=== PATIENT | female | born 1950 | race Caucasian/White ===

== ENCOUNTER → 2021-12-03 | Outpatient (CLI) | payer MEDICARE | LOC: RAD 09:12 | PROVIDERS: ATTEND Nurse Practitioner Adult Health | DX: I20.8 Other forms of angina pectoris (principal); E78.5 Hyperlipidemia, unspecified | CPT/HCPCS: 93306 ==

== ENCOUNTER → 2021-12-04 | Outpatient (CLI) | payer MEDICARE ==
[~2021-12-04] MED LIST: REGADENOSON 0.4 MG/5 ML SYR IV ONE
== END ==
LOC: NM 09:07
PROVIDERS: ATTEND Nurse Practitioner Adult Health
DX: R06.00 Dyspnea, unspecified (principal); I20.8 Other forms of angina pectoris; Z96.652 Presence of left artificial knee joint
CPT/HCPCS: 78452; 93017; A9502; J2785

== ENCOUNTER → 2022-08-18 | Outpatient (CLI) | payer MEDICARE ==
[~2022-08-18] MED LIST changes: +GADOBENATE DIMEGLUMINE 1 ML IV ONE; -REGADENOSON 0.4 MG/5 ML SYR IV ONE
[2022-08-18 08:17] LABS: CREATININE, SERUM 0.75 mg/dL (0.57-1.11)
== END ==
LOC: MRI 07:23
PROVIDERS: ATTEND Nurse Practitioner Adult Health
DX: R09.89 Other specified symptoms and signs involving the circulatory and respiratory systems (principal)
CPT/HCPCS: 36415; 70544; 70549; 82565; 84520

== ENCOUNTER 2025-07-30 14:36 | Emergency (ER) | payer MEDICARE ==
[~2025-07-30] VITALS: Ht 157.5 cm; Wt 68.0 kg
[2025-07-30 14:50] VITALS: TEMP 97.7
[2025-07-30 15:07] LABS: BASOPHILS % 0.5 % (0.0-1.0); EOSINOPHILS % 2.8 % (0.0-6.0); LYMPHOCYTES % 25.3 % (18.0-39.1); MONOCYTES % 7.7 % (4.4-11.3); NEUTROPHILS % 63.6 % (38.7-80.0); RED CELL DISTRIBUTION WIDTH 15.1 % (11.7-14.4)
[2025-07-30] MEDS ORDERED: MECLIZINE HCL 12.5 MG TAB ONE (15:12)
[2025-07-30 15:23] LABS: INR 0.88
[2025-07-30 15:27] LABS: EST GLOMERULAR FILTRATION RATE 88.0 ML/MIN (>=60)
[2025-07-30] MEDS: ACETAMINOPHEN 325 MG TAB PO ONE (15:37)
[2025-07-30] MEDS: MECLIZINE HCL 12.5 MG TAB PO ONE (15:38)
[2025-07-30 16:52] VITALS: PULSE 48; RESP 16; O2SAT 100
[2025-07-30] MEDS ORDERED: MECLIZINE HCL25 MG PO (16:57)
[2025-07-30 17:27] VITALS: BP 108/62; PULSE 58; RESP 16; TEMP 97.7
== END 2025-07-30 17:15 | disposition home or self-care (01) ==
LOC: ER 14:49
DX: R51.9 Headache, unspecified (principal); R42 Dizziness and giddiness; R11.0 Nausea; E78.5 Hyperlipidemia, unspecified; M81.0 Age-related osteoporosis without current pathological fracture
CPT/HCPCS: 36415; 70450; 80053; 85025; 85610; 85730; 99284; J8597